=== PATIENT | female | born 1975 | race Caucasian/White ===

== ENCOUNTER → 2017-01-11 | Outpatient (CLI) | payer BC ==
--- NOTE | 2017-01-12 09:49 | MM ---
Reason for exam: screening (asymptomatic). Last mammogram was performed 2 years and 9 months ago. History: Took hormonal contraceptives for 17 years beginning at age 15. Physical Findings: A clinical breast exam by your physician is recommended on an annual basis and results should be correlated with mammographic findings. MG Screening Mammo w CAD Bilateral CC and MLO view(s) were taken. Prior study comparison: April 25, 2014, bilateral MG screening mammo w CAD. June 02, 2009, bilateral digital screening mammogram. The breast tissue is heterogeneously dense. This may lower the sensitivity of mammography. No significant changes when compared with prior studies. ASSESSMENT: Benign, BI-RAD 2 RECOMMENDATION: Routine screening mammogram of both breasts in 1 year.
== END | disposition home or self-care (01) ==
LOC: RADMAMWWP 09:34
PROVIDERS: ATTEND Pediatrics
DX: Z12.31 Encounter for screening mammogram for malignant neoplasm of breast (principal)

== ENCOUNTER → 2019-07-11 | Outpatient (CLI) | payer BC ==
--- NOTE | 2019-07-12 11:20 | MM ---
Reason for exam: screening (asymptomatic). Last mammogram was performed 2 years and 6 months ago. History: Took hormonal contraceptives for 17 years beginning at age 15. Physical Findings: A clinical breast exam by your physician is recommended on an annual basis and results should be correlated with mammographic findings. MG Screening Mammo w CAD Bilateral CC and MLO view(s) were taken. Prior study comparison: January 11, 2017, bilateral MG screening mammo w CAD. April 25, 2014, bilateral MG screening mammo w CAD. The breast tissue is heterogeneously dense. This may lower the sensitivity of mammography. There is no discrete abnormality. ASSESSMENT: Negative, BI-RAD 1 RECOMMENDATION: Routine screening mammogram of both breasts in 1 year.
== END | disposition home or self-care (01) ==
LOC: RADMAMWWP 13:26
PROVIDERS: ATTEND Pediatrics
DX: Z12.31 Encounter for screening mammogram for malignant neoplasm of breast (principal)
CPT/HCPCS: 77067

== ENCOUNTER 2021-11-08 18:28 | Emergency (ER) | payer BC ==
[2021-11-08] MEDS ORDERED: KETOROLAC 15 MG/ML 1 ML VIAL IVP STA (19:12)
--- NOTE | 2021-11-08 19:31 | ED ---
Chest Pain HPI - General Chief Complaint: Chest Pain Stated Complaint: heart pressure Time Seen by Provider: 11/08/21 18:54 Source: patient, RN notes reviewed Mode of arrival: ambulatory Limitations: no limitations - History of Present Illness Initial Comments: 46-year-old female who was a smoker 2 packs of cigarettes per day but no history of asthma or lung disease or heart disease. Who states she's had 2 or 3 days of left-sided intermittent chest tightness and pressure he gets worse with deep breathing or certain movements. She denies any fevers chills or sweats she has cough with slight yellow phlegm at times. She does work in a factory doing repetitive work but does not recall any particular incident that could've injured her chest wall. She does do a lot of lifting. No family history of heart or lung disease at an early age no other complaints or modifying factors at this time. Patient does state the pain is low-grade in nature MD Complaint: chest pain - Related Data Home Medications Medication Instructions Recorded Confirmed Albuterol Inhaler [Ventolin Hfa 2 puff INHALATION RT-Q4H PRN 11/08/21 11/08/21 Inhaler] Cetirizine HCl [Zyrtec] 10 mg PO DAILY 11/08/21 11/08/21 Cholecalciferol [Vitamin D3 (25 25 mcg PO DAILY 11/08/21 11/08/21 Mcg = 1000 Iu)] Zinc 50 mg PO DAILY 11/08/21 11/08/21 risperiDONE [RisperDAL] 0.5 mg PO W/SUPPER 11/08/21 11/08/21 Previous Rx's Medication Instructions Recorded Cyclobenzaprine [Flexeril] 10 mg PO TID #14 tab 11/08/21 Ibuprofen 800 mg PO Q6HR PRN #20 tablet 11/08/21 Allergies Allergy/AdvReac Type Severity Reaction Status Date / Time Penicillins Allergy Unknown Verified 11/08/21 20:34 Childhood Review of Systems ROS Statement: Those systems with pertinent positive or pertinent negative responses have been documented in the HPI. ROS Other: All systems not noted in ROS Statement are negative. EKG Findings - EKG Results: EKG: interpreted by ERMD, WNL, sinus rhythm, normal axis, normal QRS, normal ST/T, no acute changes (Normal sinus rhythm of 101 tachycardia IL interval 142 QRS duration 90 QT since QTC 338/[address]-T wave changes) Past Medical History Past Medical History: No Reported History History of Any Multi-Drug Resistant Organisms: None Reported Past Surgical History: Section Past Psychological History: No Psychological Hx Reported Smoking Status: Current every day smoker Past Alcohol Use History: None Reported Past Drug Use History: None Reported General Exam - General Exam Comments Initial Comments: This is a well-developed well-nourished awake alert oriented 3 female Limitations: no limitations General appearance: alert, anxious Head exam: Present: atraumatic, normocephalic, normal inspection Eye exam: Present: normal appearance, PERRL, EOMI. Absent: scleral icterus, conjunctival injection, periorbital swelling ENT exam: Present: normal exam, mucous membranes moist Neck exam: Present: normal inspection, full ROM, other (No stridor JVD or bruits). Absent: tenderness, meningismus, lymphadenopathy Respiratory exam: Present: normal lung sounds bilaterally, chest wall tenderness (Tenderness palpation over left costal sternal margin and costochondral margins no step-off no crepitation this does seem to reproduce the patient's pain). Absent: respiratory distress, wheezes, rales, rhonchi, stridor Cardiovascular Exam: Present: regular rate, normal rhythm, normal heart sounds. Absent: systolic murmur, diastolic murmur, rubs, gallop, clicks GI/Abdominal exam: Present: soft, normal bowel sounds. Absent: distended, tenderness, guarding, rebound, rigid Extremities exam: Present: normal inspection, full ROM, normal capillary refill. Absent: tenderness, pedal edema, joint swelling, calf tenderness Back exam: Present: normal inspection Neurological exam: Present: alert, oriented X3, CN II-XII intact Psychiatric exam: Present: normal affect, normal mood Skin exam: Present: warm, dry, intact, normal color. Absent: rash Course Vital Signs 11/08/21 11/08/21 11/08/21 18:37 19:36 20:55 Temperature 97.5 F L Pulse Rate 97 87 94 Pulse Rate [ 87 Y[employer]her ] Respiratory 16 18 18 Rate Blood Pressure 134/74 104/72 O2 Sat by Pulse 99 97 95 Oximetry Chest Pain MDM - MDM Imaging reviewed no acute findings I did discuss the findings with the patient and her family was present all lab work is within normal limits patient is pain- free at this time the presentation is consistent with musculoskeletal chest pain/costochondritis. She'll be discharged on appropriate medication. Disposition Clinical Impression: Costochondritis, Chest wall syndrome Disposition: HOME SELF-CARE Condition: Good Instructions (If sedation given, give patient instructions): Costochondritis (ED) Prescriptions: Cyclobenzaprine [Flexeril] 10 mg PO TID #14 tab Ibuprofen 800 mg PO Q6HR PRN #20 tablet PRN Reason: Pain Is patient prescribed a controlled substance at d/c from ED?: No Referrals: Kleber Palmer MD [Primary Care Provider] - 1-2 days
[2021-11-08 19:39] VITALS: RESP 18
--- NOTE | 2021-11-08 20:02 | XR ---
EXAMINATION TYPE: XR chest 2V DATE OF EXAM: 11/08/2021 COMPARISON: NONE HISTORY: Chest pressure TECHNIQUE: 2 views FINDINGS: Heart and mediastinum are normal. Lungs are clear. Diaphragm is normal. Bony thorax is inta ct. IMPRESSION: Normal chest
[2021-11-08 20:17] LABS: Basophils # (A) 0.1 k/uL (0-0.2); Basophils % (A) 1 %; Eosinophils # (A) 0.3 k/uL (0-0.7); Eosinophils % (A) 3 %; HCT 43.9 % (34.0-46.0); HGB 14.5 gm/dL (11.4-16.0); Lymphocytes # (A) 1.9 k/uL (1.0-4.8); Lymphocytes % (A) 23 %; MCH 31.5 pg (25.0-35.0); MCHC 33.1 g/dL (31.0-37.0); MCV 95.4 fL (80.0-100.0); Monocytes # (A) 0.5 k/uL (0-1.0); Monocytes % (A) 6 %; Neutrophils # (A) 5.2 k/uL (1.3-7.7); Neutrophils % (A) 65 %; Platelet Count 231 k/uL (150-450); RDW 13.1 % (11.5-15.5); WBC 8.1 k/uL (3.8-10.6)
[2021-11-08 20:52] LABS: INR 0.9 (<1.2); Partial Thromboplastin Time 25.4 sec (22.0-30.0); Prothrombin Time 9.4 sec (9.0-12.0)
[2021-11-08 21:20] VITALS: BP 110/83; PULSE 85; TEMP 97.9
[2021-11-08 21:20] LABS: ALT 19 U/L (4-34); AST 56 U/L (14-36); African American GFR (CKD) >90 (>60 ml/min/1.73 sqM); Albumin 4.6 g/dL (3.5-5.0); Alkaline Phosphatase 54 U/L (38-126); Anion Gap 11 mmol/L; Blood Urea Nitrogen 17 mg/dL (7-17); Calcium 9.4 mg/dL (8.4-10.2); Carbon Dioxide 21 mmol/L (22-30); Chloride 106 mmol/L (98-107); Glucose 88 mg/dL (74-99); Magnesium 1.9 mg/dL (1.6-2.3); Non-African American GFR(CKD) >90 (>60 ml/min/1.73 sqM); Sodium 138 mmol/L (137-145); Total Bilirubin 1.1 mg/dL (0.2-1.3); Total Protein 7.8 g/dL (6.3-8.2)
[2021-11-08 21:23] LABS: Potassium 5.4 mmol/L (3.5-5.1)
== END 2021-11-08 21:19 | disposition home or self-care (01) ==
LOC: EC 18:28
DX: M94.0 Chondrocostal junction syndrome [Tietze] (principal); R07.1 Chest pain on breathing; F17.210 Nicotine dependence, cigarettes, uncomplicated; J45.909 Unspecified asthma, uncomplicated; Z79.51 Long term (current) use of inhaled steroids
CPT/HCPCS: 36415; 93005; 85379; 83880; 80053; 83735; 84484; 85025; 85610; 85730; 71046; 99285; 96374; J1885

== ENCOUNTER → 2021-11-12 | Outpatient (CLI) | payer BC ==
--- NOTE | 2021-11-16 11:56 | MM ---
Reason for exam: screening (asymptomatic). Last mammogram was performed 2 years and 4 months ago. History: Took hormonal contraceptives for 17 years beginning at age 15. Physical Findings: A clinical breast exam by your physician is recommended on an annual basis and results should be correlated with mammographic findings. MG Screening Mammo w CAD Bilateral CC and MLO view(s) were taken. Prior study comparison: July 11, 2019, bilateral MG screening mammo w CAD. January 11, 2017, bilateral MG screening mammo w CAD. There are scattered fibroglandular densities. Nodular focal asymmetry 3-4 o'clock left breast is more apparent. Left nipple ring. ASSESSMENT: Incomplete: need additional imaging evaluation, BI-RAD 0 RECOMMENDATION: Special view mammogram of the left breast. (3D) If lesion persists on supplemental views, image directed ultrasound is recommended. [facility] will attempt to contact patient to return for supplemental views and ultrasound if indicated.
== END | disposition home or self-care (01) ==
LOC: RADMAMWWP 08:42
PROVIDERS: ATTEND Family Medicine
DX: Z12.31 Encounter for screening mammogram for malignant neoplasm of breast (principal)
CPT/HCPCS: 77067

== ENCOUNTER → 2021-11-19 | Outpatient (CLI) | payer BC ==
--- NOTE | 2021-11-19 10:48 | MM ---
Reason for exam: additional evaluation requested from abnormal screening. Last mammogram was performed less than 1 month ago. History: Took hormonal contraceptives for 17 years beginning at age 15. Physical Findings: Nurse did not find any significant physical abnormalities on exam. MG Work Up Mamm w CAD LT Spot compression CC, spot compression MLO, LM, and CCRL view(s) were taken of the left breast. Prior study comparison: November 12, 2021, bilateral MG screening mammo w CAD. July 11, 2019, bilateral MG screening mammo w CAD. There are scattered fibroglandular densities. Lateral 7mm nodular asymmetry persists only on the spot CC view. Not clearly seen on the other views. Nipple ring. These results were verbally communicated with the patient and result sheet given to the patient on 11/19/21. ASSESSMENT: Incomplete: need additional imaging evaluation, BI-RAD 0 RECOMMENDATION: Ultrasound of the left breast. (lateral)
--- NOTE | 2021-11-19 10:55 | USB ---
Reason for exam: additional evaluation requested from abnormal screening. History: Took hormonal contraceptives for 17 years beginning at age 15. US Breast Workup Limited LT Left limited breast ultrasound including focal area of concern, retroareolar and axilla demonstrates a 0.5 x 0.3 x 0.5cm mixed lesion at 3 o'clock, primarily cystic, suspect some internal debris. Scanned 3-6 o'clock. These results were verbally communicated with the patient and result sheet given to the patient on 11/19/21. ASSESSMENT: Probably benign, BI-RAD 3 RECOMMENDATION: Follow-up diagnostic mammogram of the left breast in 6 months.
== END | disposition home or self-care (01) ==
LOC: RADMAMWWP 09:08
PROVIDERS: ATTEND Family Medicine
DX: N60.02 Solitary cyst of left breast (principal); N64.89 Other specified disorders of breast
CPT/HCPCS: 77065

== ENCOUNTER 2022-11-12 20:41 | Emergency (ER) | payer BC, OTHER ==
[2022-11-12] MEDS ORDERED: ALBUTEROL HFA INHALER INHALATION STA (21:02)
--- NOTE | 2022-11-12 21:06 | ED ---
Psych HPI - General Chief Complaint: Psychiatric Symptoms Stated Complaint: Mental Health Time Seen by Provider: 11/12/22 20:50 Source: patient, RN notes reviewed Mode of arrival: ambulatory - History of Present Illness Initial Comments: This is a pleasant 47-year-old female who comes ER with nonspecific complaints. Patient states that she is having "premonitions"that someone is going to her family. Patient is not giving me any specific details on this. Although she is denying any hallucinations, either auditory or visual. She does state that she feels as if somebody is watching her. She then goes on to state that she's had a cough for a while. Patient is a cigarette smoker. Patient denying any fever. Cough is nonproductive. She has had some nasal congestion. Denies any chest pain or shortness of breath. Patient states she's also had a lump on her vaginal area which is been there for a long time. She denied any suicidal or homicidal ideation. No illicit drug abuse. Positive cigarette smoker. No headache, no fever or chills, no changes in vision or hearing, no sore throat or difficulty with speech, no neck pain, no chest pain or shortness of breath, no abdominal pain, no nausea or vomiting, no changes in urination or bowel movements, no numbness or tingling, no extremity pain, no skin rashes or lesions. Past medical, surgical, social, and family history reviewed. - Related Data Home Medications Medication Instructions Recorded Confirmed Albuterol Inhaler [Ventolin Hfa 2 puff INHALATION RT-Q4H PRN 11/08/21 11/12/22 Inhaler] risperiDONE [RisperDAL] 0.5 mg PO W/SUPPER 11/08/21 11/12/22 Aspirin EC [Ecotrin Low Dose] 81 mg PO DAILY 11/12/22 11/12/22 Atorvastatin [Lipitor] 40 mg PO DAILY 11/12/22 11/12/22 Metoprolol Tartrate [Lopressor] 12.5 mg PO BID 11/12/22 11/12/22 Nitroglycerin Sl Tabs [Nitrostat] 0.4 mg SUBLINGUAL Q5M PRN 11/12/22 11/12/22 Allergies Allergy/AdvReac Type Severity Reaction Status Date / Time Penicillins Allergy Unknown Verified 11/12/22 21:43 Childhood Review of Systems ROS Statement: Those systems with pertinent positive or pertinent negative responses have been documented in the HPI. ROS Other: All systems not noted in ROS Statement are negative. Past Medical History Past Medical History: No Reported History, Asthma Additional Past Medical History / Comment(s): Anxiety History of Any Multi-Drug Resistant Organisms: None Reported Past Surgical History: Section Past Psychological History: No Psychological Hx Reported Smoking Status: Current every day smoker Past Alcohol Use History: None Reported Past Drug Use History: None Reported General Exam Limitations: no limitations General appearance: alert, in no apparent distress Head exam: Present: atraumatic, normocephalic, normal inspection Eye exam: Present: normal appearance, PERRL, EOMI. Absent: scleral icterus, conjunctival injection, periorbital swelling ENT exam: Present: normal exam, normal oropharynx, mucous membranes moist, normal external ear exam. Absent: mucous membranes dry Neck exam: Present: normal inspection, full ROM. Absent: tenderness, meningismus, lymphadenopathy Respiratory exam: Present: wheezes (Mild expiratory). Absent: respiratory distress, rales, rhonchi, stridor, chest wall tenderness, accessory muscle use Cardiovascular Exam: Present: regular rate, normal rhythm, normal heart sounds. Absent: systolic murmur, diastolic murmur, rubs, gallop, clicks GI/Abdominal exam: Present: soft, normal bowel sounds. Absent: distended, tenderness, guarding, rebound, rigid Extremities exam: Present: normal inspection, full ROM, normal capillary refill. Absent: tenderness, pedal edema, joint swelling, calf tenderness Back exam: Present: normal inspection Neurological exam: Present: alert, oriented X3, CN II-XII intact Psychiatric exam: Present: normal affect, normal mood Skin exam: Present: warm, dry, intact, normal color. Absent: rash Course Vital Signs 11/12/22 11/12/22 20:46 22:45 Temperature 98.1 F 99.1 F Pulse Rate 111 H 83 Respiratory 16 18 Rate Blood Pressure 125/89 112/77 O2 Sat by Pulse 95 97 Oximetry Procedures - Smoking Cessation Time Spent Discussing Smoking Cessation w/Patient (Minutes): 3 Patient Acknowledges Need for Cessation: Yes Medical Decision Making - Medical Decision Making This patient is reluctant to give me specifics on how she is feeling. Understanding that she is having a premonition that her family may be hurt in t he future. I any suicidal or homicidal ideation. Does admit that she's had a cough for quite some time. Patient then states that she has had asthma which is untreated. Patient not taking any medications. States that at one time she was diagnosed with bipolar disorder but was untreated. Was pt. sent in by a medical professional or institution? @ -No Did you speak to anyone other than the patient for history? @ -EPS nurse Did you review nursing and triage notes? @ -Y Were old charts reviewed? @ -No Differential Diagnosis? @ -Viral URI, COVID-19, Bartholin cyst, psychosis, paranoia, anxiety, patient denying any homicidal or suicidal ideation EKG interpreted by me (3pts min.)? @ -[none] X-rays interpreted by me (1pt min.)? @ -2 view chest x-ray interpreted by me reveals no evidence of acute pathology. Reviewed radiology interpretation CT interpreted by me (1pt min.)? @ -[none] U/S interpreted by me (1pt. min.)? @ -[none] What testing was considered but not performed? (CT, X-rays, U/S, labs)? Why? @ I did consider blood work but after a discussion I do not believe this would add to the disposition What meds were considered but not given? Why? @ -[none] Did you discuss the management of the patient with other professionals? @ -EPS nurse regarding management and disposition Did you reconcile home meds? @ -[none] Was smoking cessation discussed for >3mins.? @ -[none] Was critical care preformed (if so, how long)? @ -[none] Were there social determinants of health that impacted care today? How? (Homelessness, low income, unemployed, alcoholism, drug addiction, transportation, low edu. Level, literacy, decrease access to med. care, intermediate, rehab)? @ -Patient without health insurance. Patient was given resources for outpatient community mental health care. I also gave the patient referral for gynecology for the long-standing vaginal cyst. I did discuss this with the patient. This is possibly a Bartholin cyst what she is describing. The patient deferred the pelvic examination. Was there de-escalation of care discussed even if they declined? (Discuss DNR or withdrawal of care, Hospice)? @ -[Discuss DNR or withdrawal of care, Hospice?] What co-morbidities impacted this encounter? (DM, HTN, Smoking, COPD, CAD, Cancer, CVA, Hep., AIDS, mental health diagnosis, sleep apnea, morbid obesity)? @ -Anxiety, previous provisional diagnosis of bipolar disorder. Was patient admitted / discharged? @ -She was discharged in stable condition. Patient was told to return to the ER for any signs or symptoms worsen. Told to return immediately if any other problems arise. All questions answered. Treatment plan discussed. Patient in agreement Every effort has been made to ensure accuracy of this dictation. However, due to the limitations of electronic medical records and dictation devices, errors in charting still occur. Undiagnosed new problem with uncertain prognosis? @ -Patient to follow up with me about the health and gynecology. Drug Therapy requiring intensive monitoring for toxicity (Heparin, Nitro, Insulin, Cardizem)? @ -[none] Were any procedures done? @ -[none] Diagnosis/symptom? @ -Viral URI, anxiety, paranoia, vaginal lesion Acute, or Chronic, or Acute on Chronic? @ -Acute and acute on chronic Uncomplicated (without systemic symptoms) or Complicated (systemic symptoms)? @ -Uncomplicated Side effects of treatment? @ -[none] Exacerbation, Progression, or Severe Exacerbation] @ -[no] Poses a threat to life or bodily function? @ -[no] - Lab Data Lab Results 11/12/22 11/12/22 11/12/22 Range/Units 21:13 21:13 21:40 Urine HCG, Qual Not Detected (Not Detectd) Coronavirus (PCR) Not Detected (Not Detectd) Influenza Type A RNA Not Detected (Not Detectd) Influenza Type B (PCR) Not Detected (Not Detectd) - Radiology Data Radiology results: report reviewed, image reviewed Independent interpretation of the chest x-ray by me reveals no evidence of acute pathology. Radiology interpretation. Disposition Clinical Impression: Paranoia, Anxiety, Vaginal lesion, Viral URI with cough Disposition: HOME SELF-CARE Condition: Good Instructions (If sedation given, give patient instructions): Upper Respiratory Infection (ED), Bartholin Cyst (ED), Anxiety (ED) Additional Instructions: Follow-up with your regular physician as directed. Return to the ER immediately if any symptoms worsen, new symptoms arise, or any other problems develop. Follow-up with [facility] as directed by the emergency psychiatric nurse. Is patient prescribed a controlled substance at d/c from ED?: No Referrals: Edmund Zimmer MD [STAFF PHYSICIAN] - 11/15/22 Time of Disposition: 22:44
--- NOTE | 2022-11-12 21:40 | XR ---
EXAMINATION TYPE: XR chest 2V DATE OF EXAM: 11/12/2022 COMPARISON: 11/08/2021 HISTORY: Cough TECHNIQUE: 2 views FINDINGS: Heart is normal. Lungs are clear. Diaphragm is normal. Bony thorax is intact. IMPRESSION: Normal chest. No change.
[2022-11-12 22:46] VITALS: BP 112/77; PULSE 83; RESP 18; TEMP 99.1
== END 2022-11-12 23:03 | disposition home or self-care (01) ==
LOC: EC 20:41
DX: F22 Delusional disorders (principal); F41.9 Anxiety disorder, unspecified; N89.8 Other specified noninflammatory disorders of vagina; J06.9 Acute upper respiratory infection, unspecified; J45.909 Unspecified asthma, uncomplicated; F17.200 Nicotine dependence, unspecified, uncomplicated; Z20.822 Contact with and (suspected) exposure to COVID-19; Z79.899 Other long term (current) drug therapy; Z88.0 Allergy status to penicillin
CPT/HCPCS: 71046; 81025; 82075; 87502; 87635; 94640; 99285

== ENCOUNTER → 2023-05-07 | Outpatient (CLI) | payer OTHER ==
[2023-05-07 23:06] LABS: Basophils # (A) 0.03 X 10*3/uL (0.00-0.10); Basophils % (A) 0.5 %; Eosinophils % (A) 3.4 %; HCT 45.3 % (37.2-46.3); HGB 14.8 d/dL (12.0-15.0); MCHC 32.7 d/dL (32.0-37.0); MCV 97.8 FL (80.0-97.0); Mean Platelet Volume 10.8 FL (9.5-12.2); Monocytes # (A) 0.52 X 10*3/uL (0.20-1.00); Monocytes % (A) 8.9 %; NRBC Per 100 WBC 0 X 10*3/uL (0.00-0.01); Neutrophils # (A) 3.68 X 10*3/uL (1.80-7.70); Platelet Count 184 X 10*3/uL (140-440); RBC 4.63 X 10*6/uL (4.10-5.20); RDW 13.2 % (11.5-14.5); WBC 5.84 X 10*3/uL (4.50-10.00)
[2023-05-08 13:30] LABS: ALT 17 U/L (8-44); AST 24 U/L (13-35); Albumin 4.2 d/dL (3.8-4.9); Albumin/Globulin Ratio 1.83 Ratio (1.60-3.17); Alkaline Phosphatase 53 U/L (41-126); BUN/Creat Ratio 12.88 Ratio (12.00-20.00); Blood Urea Nitrogen 10.3 mg/dL (9.0-27.0); Calcium 9.4 mg/dL (8.7-10.3); Carbon Dioxide 21.6 mmol/L (21.6-31.8); Chloride 105 mmol/L (96-109); Globulin 2.3 d/dL (1.6-3.3); Glucose 107 mg/dL (70-110); Potassium 4.4 mmol/L (3.5-5.5); Sodium 142 mmol/L (135-145); Total Bilirubin <0.2 mg/dL (0.3-1.2); Total Protein 6.5 d/dL (6.2-8.2)
[2023-05-08 14:06] LABS: Valproic Acid (Depakene) 90.7 UG/ML (50.0-100.0)
== END | disposition home or self-care (01) ==
LOC: LABMAIN 11:53
PROVIDERS: ATTEND Psychiatry & Neurology Psychiatry
DX: Z00.00 Encounter for general adult medical examination without abnormal findings (principal); Z51.81 Encounter for therapeutic drug level monitoring; Z79.899 Other long term (current) drug therapy
CPT/HCPCS: 80053; 80164; 85025

== ENCOUNTER → 2024-10-24 | Outpatient (CLI) | payer BC ==
--- NOTE | 2024-10-24 10:48 | XR ---
EXAMINATION TYPE: XR chest 2V DATE OF EXAM: 10/24/2024 10:43 AM COMPARISON: 11/12/2022 CLINICAL INDICATION: Female, 49 years old with history of R05.9 Cough, TECHNIQUE: XR chest 2V view(s) obtained. FINDINGS: The heart size is normal. The pulmonary vasculature is normal. The lungs are clear. IMPRESSION: 1. No acute pulmonary process. [facility], Workstation: [facility], 10/24/2024 10:45 AM
== END | disposition home or self-care (01) ==
LOC: RADXRMAIN 10:27
PROVIDERS: ATTEND Pediatrics
DX: R05.9 Cough, unspecified (principal)
CPT/HCPCS: 71046

== ENCOUNTER → 2024-10-24 | Outpatient (CLI) | payer BC ==
[2024-10-24 15:13] LABS: Basophils # (A) 0.03 X 10*3/uL (0.00-0.10); Basophils % (A) 0.5 %; Eosinophils # (A) 0.15 X 10*3/uL (0.04-0.35); Eosinophils % (A) 2.3 %; HCT 49.4 % (37.2-46.3); HGB 16.1 g/dL (12.0-15.0); Lymphocytes % (A) 28.7 %; MCH 32.2 pg (27.0-32.0); MCHC 32.6 g/dL (32.0-37.0); MCV 98.8 FL (80.0-97.0); Monocytes # (A) 0.37 X 10*3/uL (0.20-1.00); Monocytes % (A) 5.6 %; NRBC Per 100 WBC 0 X 10*3/uL (0.00-0.01); Neutrophils # (A) 4.16 X 10*3/uL (1.80-7.70); Neutrophils % (A) 62.6 %; Platelet Count 215 X 10*3/uL (140-440); RDW 13.2 % (11.5-14.5); WBC 6.63 X 10*3/uL (4.50-10.00)
[2024-10-24 16:14] LABS: Chol/HDL Ratio 3.46 Ratio
[2024-10-24 17:34] LABS: Valproic Acid (Depakene) 48.1 UG/ML (50.0-100.0)
[2024-10-24 17:37] LABS: ALT 19 U/L (8-44); AST 34 U/L (13-35); Albumin 4.7 g/dL (3.8-4.9); Albumin/Globulin Ratio 1.57 Ratio (1.60-3.17); Alkaline Phosphatase 52 U/L (41-126); BUN/Creat Ratio 18.29 Ratio (12.00-20.00); Blood Urea Nitrogen 12.8 mg/dL (9.0-27.0); Calcium 9.8 mg/dL (8.7-10.3); Carbon Dioxide 23.3 mmol/L (21.6-31.8); Chloride 102 mmol/L (96-109); Glucose 80 mg/dL (70-110); Potassium 4.7 mmol/L (3.5-5.5); Sodium 138 mmol/L (135-145); Total Bilirubin 0.4 mg/dL (0.3-1.2); Total Protein 7.7 g/dL (6.2-8.2)
== END | disposition home or self-care (01) ==
LOC: LABWHC1 10:02
PROVIDERS: ATTEND Psychiatry & Neurology Psychiatry
DX: Z00.00 Encounter for general adult medical examination without abnormal findings (principal); Z13.220 Encounter for screening for lipoid disorders; Z51.81 Encounter for therapeutic drug level monitoring; Z79.899 Other long term (current) drug therapy
CPT/HCPCS: 36415; 80053; 80061; 80164; 85025